=== PATIENT | male | born 1960 | race American Indian/Alaskan Native ===

== ENCOUNTER 2018-08-10 11:03 | Day surgery (SDC) | payer OTHER ==
[2018-08-06 10:05] VITALS: BMI 34.4
[2018-08-10] MEDS ORDERED: Propofol 10 mg/ml Inj (20 ML) ONE ×3 (12:12→12:45)
[2018-08-10] MEDS ORDERED: Midazolam 2 MG/2 ML VIAL ONE (12:35)
[2018-08-10] MEDS ORDERED: Sodium Chloride 0.9% 1,000 ML IV SCH (13:15)
[2018-08-10 14:06] VITALS: BP 136/92; PULSE 67; RESP 18; TEMP 98.2; O2SAT 96
== END 2018-08-10 14:45 | disposition home or self-care (01) ==
LOC: ENDO 11:03
PROVIDERS: ATTEND Internal Medicine Gastroenterology
DX: Z12.11 Encounter for screening for malignant neoplasm of colon (principal); Z85.038 Personal history of other malignant neoplasm of large intestine; K57.30 Diverticulosis of large intestine without perforation or abscess without bleeding; K62.0 Anal polyp; K62.5 Hemorrhage of anus and rectum
CPT/HCPCS: 45385; 88305; J2001; J2250; J2704; J3010; J7030